=== PATIENT | male | born 1960 | race Caucasian/White ===

== ENCOUNTER 2019-09-15 19:25 | Emergency (ER) | payer BC ==
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
[2019-09-15] MEDS ORDERED: Ibuprofen 800 MG Tab PO ONE (21:37)
== END 2019-09-15 22:20 | disposition home or self-care (01) ==
LOC: JD.ED 19:25
DX: T22.112A Burn of first degree of left forearm, initial encounter (principal); T22.132A Burn of first degree of left upper arm, initial encounter; T20.10XA Burn of first degree of head, face, and neck, unspecified site, initial encounter; T31.0 Burns involving less than 10% of body surface; S50.312A Abrasion of left elbow, initial encounter; S80.212A Abrasion, left knee, initial encounter; E11.9 Type 2 diabetes mellitus without complications; I10 Essential (primary) hypertension; Z87.891 Personal history of nicotine dependence; X19.XXXA Contact with other heat and hot substances, initial encounter
CPT/HCPCS: 16000; 99283; A9270; 99282